=== PATIENT | female | born 2000 | race Caucasian/White ===

== ENCOUNTER 2024-09-13 23:15 | Emergency (ER) | payer SELFPAY ==
[2024-09-13 23:32] VITALS: PULSE 96; RESP 20; O2SAT 100
== END 2024-09-14 02:44 | disposition left against medical advice (07) ==
LOC: ER 09-14 00:03
DX: R10.9 Unspecified abdominal pain (principal); Z53.21 Procedure and treatment not carried out due to patient leaving prior to being seen by health care provider